=== PATIENT | female | born 1940 | race Caucasian/White ===

== ENCOUNTER 2016-10-31 07:09 | Outpatient (CLI) | payer MEDICARE, OTHER ==
[~2016-10-31] VITALS: Ht 161.3 cm; Wt 121.9 kg
--- NOTE | ~2016-10-31 | CATH ---
Cardiac Diagnostic + PCI Report Demographics Patient Name KARLEE PIERRE Gender Female STEVEN Date of 1940 Age 76 year(s) Patient Number [id number] Date of Study 10/31/2016 Visit Number [id number] Room Number G6399 [place] [id number] Ht 161.29 cm Wt 121.9 kg Referring [facility] Primary Physician Physician Radha MADRID Performing [facility] Secondary Physician Physician Radha MADRID Diagnostic [facility] Assisting Physician Physician Radha MADRID Interventional [facility] Physician Hairspring Staker Physician Radha MADRID Findings and Conclusions Diagnostic Findings and Conclusion 2 vessel CAD Mid LAD AUDIO VISUAL SECRETARY with left to right collaterals and left to left collaterals Proximal 60% RCA lesion Mild pulmonary HTN, mean PA pressure 29 mmHg, PCWP 6 mmHg, LVEDP 11 mmHg. Diagnostic Recommendations FFR of RCA Interventional Findings and Conclusion FFR of RCA was 0.88, lesion is not physiologically significant. No PCI recommended Interventional Recommendations Patient will be discharged later today. Hydration and followup creatinine. Patient has been instructed to not lift anything more than 5 pounds for 1 week. I will plan on seeing the patient back in 3 week(s). Optimize LV systolic function. Aggressive risk factor management. Aggressive medical therapy for coronary artery disease. ASA. Statin. Beta Samir. Angiotensin Receptor Samir will be given . Cardiac diet . Optimization of medical therapy as an outpatient. Procedure Description The patient was brought to the diagnostic cardiac catheterization-EP laboratory in the fasting, non-sedated state. Informed consent was obtained in the written and verbal form after the risks and benefits were explained. The patient had no further questions and agreed to proceed. The planned puncture-incision site(s) were shaved and prepped with ChloraPrep and draped in the usual sterile manner. Conscious sedation, supplemental oxygen, and pain control medications were delivered by a registered nurse under physician guidance. Surface ECG rhythm, blood pressure measurement, and pulse oximetry were monitored throughout the procedure. Venous access. Venous access was gained prior to the procedure starting by inserting an 18 gauge IV catheter to the right brachial vein. A sheath was advanced into the vessel and used for catheter placement. Arterial access. The access site was infiltrated with lidocaine. The vessel was entered with the Seldinger technique. A sheath was advanced into the vessel and used for catheter placement. Right heart catheterization. A Minoa Leobardo catheter was successfully advanced to the right atrium, right ventricle, pulmonary artery, and pulmonary artery wedge position under fluoroscopic guidance. Resting hemodynamics were obtained. Measurements included pressures and venous oxygen saturation samples. The Minoa was removed without difficulty. Left heart catheterization. A catheter was advanced across the aortic valve to the left ventricle under fluoroscopic guidance. Resting hemodynamics were obtained. Selective right coronary angiography. A catheter was advanced into the right coronary vessel ostium under fluoroscopic guidance. Contrast was injected by hand. Images were obtained in multiple projections. Selective left coronary angiography. A catheter was advanced into the left coronary vessel ostium under Fluoroscopic guidance. Contrast was injected by hand. Images were obtained in multiple projections. FFR measurement was performed. The vessel was entered with a guiding catheter. The FFR wire was normalized and then advanced across the lesion. Maximum hyperemia was achieved using adenosine. Arterial and Venous hemostasis was achieved. The patient was transferred to a regular nursing floor via cart accompanied by a nurse. The patient left the laboratory in stable condition. Diagnostic Cath Status: Elective Interventional Cath Status: Elective Procedure Procedure Type Diagnostic procedure:Angiography:, Right and Left Heart Cath, Coronary Angios PCI procedure:Additional Imaging:, FFR/iFR:, Initial Vessel Indications: Cardiomyopathy and Dyspnea with exertion. The procedure was explained in detail to the patient. Risks, complications and alternative treatments were reviewed. Written consent was obtained. Medications Reviewed with Patient prior to Procedure. Angiographic Findings Dominance: Right Cardiac Arteries and Lesion Findings LMCA: Normal (0% Stenosis). LAD: Lesion on Mid LAD: Mid subsection.100% stenosis . Pre procedure MIROSLAVA 0 flow was noted. Chronic total occlusion. Lesion on 1st Diag: Mid subsection.20% stenosis . LCx: Lesion on Mid CX: Mid subsection.33% stenosis . Lesion on Dist CX: Mid subsection.30% stenosis . RCA: Lesion on Prox RCA: Mid subsection.60% stenosis . Pre procedure MIROSLAVA II flow was noted. Culprit lesion. FFR + + + + !FFR !Stage/Medication !Dosage ! + + + + !0.88 !Adenosine (I.V) !140 ! + + + + Devices used - Sports[employer] Pressure Wire. Number of passes: 1. - Runthrough NS .014 x 180. Number of passes: 1. Lesion on Mid RCA: Mid subsection.20% stenosis . Lesion on Dist RCA: Mid subsection.20% stenosis . Lesion on 1st RPL: Mid subsection.10% stenosis . Lesion on R PDA: Mid subsection.10% stenosis . Ramus: Lesion on Ramus: Ostial.20% stenosis . Cardiac Collaterals - Moderatecollateral flow from the R PDA to the Dist LAD. - Moderatecollateral flow from the 2nd Ob Nicki to the Dist LAD. Coronary Tree Procedure Data Procedure Date Date: 10/31/2016Start: 10:09 AMEnd: 11:12 AM Entry Locations - Retrograde Percutaneous access was performed through the Right Radial artery (Primary location). A 6 Fr sheath was inserted. Hemostasis was successfully obtained using Mechanical Compression. Closure Comments: R Band - 14mL's. - Antegrade Percutaneous access was performed through the Right Brachial vein. A 6 Fr sheath was inserted. Hemostasis was successfully obtained using Manual Compression. Closure Comments: 10min of manual pressure held by Adele FORTUNE). Procedure Medications Order and Administration + + + + + !Time !Medication !Dosage !Route ! + + + + + !10/31/2016 10:09 !Versed !1 mg !I.V. ! !AM ! ! ! ! + + + + + !10/31/2016 10:13 !Radial Verapamil !2.5 mg !I.A. ! !AM ! ! ! ! + + + + + !10/31/2016 10:21 !Heparin (ACC_3) !5000 units !I.V. bolus ! !AM ! ! ! ! + + + + + !10/31/2016 10:33 !Angiomax (Bivalirudin) !90 mg !I.V. bolus ! !AM !(ACC_5) ! ! ! + + + + + !10/31/2016 10:45 !Adenosine (IV) !140 mcg/kg/min!I.V. ! !AM ! ! ! ! + + + + + !10/31/2016 10:47 !Adenosine (IV) ! !I.V. ! !AM ! ! ! ! + + + + + !10/31/2016 10:48 !Angiomax (Bivalirudin) ! !I.V. drip ! !AM !(ACC_5) ! ! ! + + + + + !10/31/2016 10:34 !Angiomax (Bivalirudin) !1.75 mg/kg/hr !I.V. drip ! !AM !(ACC_5) ! ! ! + + + + + Devices Used - A6 Fr. Balloon Wedge Catheterwas used for:Right heart cath. - A5 Fr. BS JR 4 Diag. Catheterwas used for:Right coronary angiography. Comments: and LV pressures. - A5 Fr. BS JL 3.5 Diag. Catheterwas used for:Left coronary angiography. - A6 Fr. 3DRC JJ Guide Catheterwas used for:RCA Intervention. Contrast Material - Isovue 03570 ml Fluoroscopy Time: Diagnostic: 8:54 minutes. Total: 8:54 minutes. Fluoroscopy Dose: Diagnostic: 1426 mGy. Total: 1426 mGy. Estimated Blood Loss: 15 ml. Additional [facility] PCI Information PCI Indication:PCI for high risk Non-STEMI or unstable angina. Medical History Performed Procedures and Imaging Results - No [facility] stress or imaging studies were performed. Allergies - Other:(Lisinopril). - Other:([place]). Risk Factors The patient risk factors include:hypertension, insulin-treated diabetes mellitus, last creatinine: 1.2 mg/dl, creatinine clearance: 75.55 ml/min and dyslipidemia. Admission Data Admission Date: 10/31/2016 Admission Time: 07:09 AM Admit Source: Other Insurance Payors: Medicare. Admission Medications + +------+------+ + + + + !Medication !Dosage!Times !Last !Last !Administered !Comments ! ! ! !Per !Delivery !Delivery ! ! ! ! ! !Day !Date !Time ! ! ! + +------+------+ + + + + !Beta ! ! ! ! !Yes ! ! !Samir ! ! ! ! ! ! ! !(any) ! ! ! ! ! ! ! + +------+------+ + + + + !ARB (any) ! ! ! ! !Yes ! ! + +------+------+ + + + + !Statin ! ! ! ! !Yes ! ! !(any) ! ! ! ! ! ! ! + +------+------+ + + + + Clinical Evaluation Leading to Procedure - The patient's CAD presentation was assessed as: Symptom unlikely to be ischemic. - The patient's anginal syndrome during the past two weeks was assessed as: Class II according to the [place] Cardi[employer] Classification System (CCS). Anti-anginal medications were prescribed during the past two weeks. The medication is: Beta Blockers. - The patient has been in a state of heart failure within the past two weeks. - The patient's heart failure status was assessed as NYHA Class III, with CHF symptoms of CAI. - The reason for the patient's labor contract analyst visit is evaluation of cardiomyopathy and/or evaluation of left ventricular systolic dysfunction. VA . Ejection Fraction - Method: Echocardiography. EF%: 30. Hemodynamics Condition: Rest O2 Consumption: Estimated: 200.91Heart Rate: 71 bpm Oxygen Saturation +--------+-----+----+ +----+ + !Location!pCO2 !pO2 !% Saturation !Hgb !O2 Content ! +--------+-----+----+ +----+ + !PA ! ! !67.7 !12.6! ! +--------+-----+----+ +----+ + !RA ! ! !72.8 !12.6! ! +--------+-----+----+ +----+ + !AO ! ! !100 !12.6! ! +--------+-----+----+ +----+ + Pressures (mmHg) +-----+ + !Site !Pressure ! +-----+ + !PA !41 (29) ! +-----+ + !PCW !04/03 (6) ! +-----+ + !RV !36/1 ,4 ! +-----+ + !RA !11/30 (3) ! +-----+ + !LV !123/13 ,11 ! +-----+ + !LV !124/14 ,16 ! +-----+ + Cardiac Output +------+ + + + !Method!CO (l/min) !CI (l/min/m2) !SV (ml) ! +------+ + + + !Rut !3.63 !1.6 !51.14 ! +------+ + + + Shunts Oxygen Values O2 Capacity 171.36 O2 Consumption 200.91 Flows (l/min) Qs 4.31 Qe/Qp 1.19 Qp 3.63 Qp/Qs 0.84 Qe 4.31 Vascular Resistance (dynes x sec x cm-5) + +----+---+----+----+---------+-------+ !CO method !TSVR!SVR!TPVR!PVR !TPVR/TSVR!PVR/SVR! + +----+---+----+----+---------+-------+ !Rut ! ! !7.9 !6.29! ! ! + +----+---+----+----+---------+-------+ !Qp or Qs ! ! !7.9 !6.29! ! ! + +----+---+----+----+---------+-------+ Discharge Data Discharge Date: 10/31/2016 Hospital Status: Outpatient Signatures dtt: RADHA YEN dtd: 10/31/16 1009 Physician Self Edit
[~2016-10-31 07:09] MED LIST: COLACE100 MG PO; COUMADIN **IA2.5 MG PO; COZAAR50 MG PO; CPAP INH; CRESTOR10 MG PO; CYMBALTA60 MG PO; DESYREL50 MG PO; DILTIAZEM 24HR240 MG PO; FERROUS SULFAT325 MG PO; GLUCOTROL XL2.5 M1 PO; JENTADUETO 2.51 EACH PO; K-TAB ER20 MEQ PO; KLONOPIN1 MG PO; LASIX40 MG PO; LEVEMIR FL100 UNIT/1 SUB-Q; LYRICA 75MG CAP75 MG PO; MECLIZINE HCL25 MG PO; NOVOLOG FL100 UNIT/1 SUB-Q; OXYGEN M-15 INH; PRILOSEC20 MG PO; TOPROL XL 5050 MG PO; VITAMIN B-6100 MG PO; ZYRTEC10 MG PO
[2016-10-31 07:57] LABS: BASOPHIL # 0.1 K/uL (0.0-0.2); BASOPHIL % 0.5 %; EOSINOPHIL # 0.3 K/uL (0.0-0.5); EOSINOPHIL % 2.6 %; HEMATOCRIT 40.1 % (33.0-46.0); HEMOGLOBIN 12.6 g/dL (10.0-15.0); IMMATURE GRANULOCYTE % 0.2 %; LYMPHOCYTE # 2.2 K/uL (0.8-4.0); LYMPHOCYTE % 20.9 %; MCH 29.6 pg (27.0-34.0); MCHC 31.4 gm/dL (32.0-36.5); MCV 94.1 fl (83.0-98.0); MONOCYTE # 0.9 K/uL (0.0-1.0); MONOCYTE % 7.9 %; MPV 9.7 fl (9.4-12.4); NEUTROPHIL # (ANC) 7.3 K/uL (1.8-7.8); NEUTROPHIL % 67.9 %; NRBC % 0 /100WBC (0-0.00); PLATELET COUNT 275 K/uL (150-450); RBC 4.26 M/uL (3.50-5.50); RDW-CV 13.2 % (11.9-14.6); WBC 10.7 K/uL (4.0-11.0)
[2016-10-31 08:09] LABS: INR - (THERAPEUTIC) 1.2 (0.9-1.1); PROTIME 13.2 SECONDS (9.6-11.1); PTT 28 SECONDS (25-32)
[2016-10-31 08:16] LABS: ALBUMIN 3.6 gm/dL (3.5-5.0); ANION GAP 11.7 (10.0-19.0); CALCIUM 9.1 mg/dL (8.5-10.5); CREATININE 1.2 mg/dL (0.5-1.1); POTASSIUM 3.7 mMol/L (3.7-5.1); TOTAL BILIRUBIN 0.6 mg/dL (0.0-1.5); TOTAL PROTEIN 7.8 g/dL (6.0-8.4)
== END 2016-10-31 14:46 | disposition disaster alternative care site (69) ==
LOC: GPCU 07:09 → GCAT 07:09
PROVIDERS: Internal Medicine Interventional Cardiology
PROC: 4A033BC Measurement of Arterial Pressure, Coronary, Percutaneous Approach (ICD-10-PCS; principal; 2016-10-31)
PROC: B2111ZZ Fluoroscopy of Multiple Coronary Arteries using Low Osmolar Contrast (ICD-10-PCS; principal; 2016-10-31)
PROC: 4A023N8 Measurement of Cardiac Sampling and Pressure, Bilateral, Percutaneous Approach (ICD-10-PCS; principal; 2016-10-31)
DX: I42.9 Cardiomyopathy, unspecified (principal); I25.10 Atherosclerotic heart disease of native coronary artery without angina pectoris; I25.82 Chronic total occlusion of coronary artery; I11.0 Hypertensive heart disease with heart failure; I50.32 Chronic diastolic (congestive) heart failure; E11.9 Type 2 diabetes mellitus without complications; G47.33 Obstructive sleep apnea (adult) (pediatric); I48.0 Paroxysmal atrial fibrillation; E66.9 Obesity, unspecified; J44.9 Chronic obstructive pulmonary disease, unspecified; E78.5 Hyperlipidemia, unspecified; I27.2 Other secondary pulmonary hypertension; Z95.0 Presence of cardiac pacemaker; Z79.01 Long term (current) use of anticoagulants; Z79.4 Long term (current) use of insulin; Z79.899 Other long term (current) drug therapy; Z99.81 Dependence on supplemental oxygen
CPT/HCPCS: C1769; C1887; C1894; J0153; J0583; J1644; J2001; J2250; J7030; J7060

== ENCOUNTER 2017-04-17 19:41 | Inpatient (IN) | payer MEDICARE, OTHER ==
[~2017-04-17] VITALS: Ht 161.3 cm; Wt 117.4 kg
--- NOTE | ~2017-04-17 | HP ---
PATIENT'S NAME: GABBY DESIR [facility] AGE: 76 Y [address] ROOM: [place] [address] LOCATION: GICU ADMIT DATE: 04/17/2017 History & Physical DISCHARGE DATE: FAMILY PHYSICIAN: PHYSICIAN, UNKNOWN ATTENDING PHYSICIAN: JAVAD FINNEGAN DATE OF SERVICE: CHIEF COMPLAINT: Shortness of breath. HISTORY OF PRESENT ILLNESS: A 76-year-old lady with a past medical history of systolic heart failure with ejection fraction last known was 20% to 25%. She presented to the [place] [facility] with an increasing shortness of breath over the course of past 3 months. Of note, she had a generator exchange couple weeks ago and did get infection which was treated with the antibiotics resulting in some diarrhea which have resolved by now. She was transferred here for further medical care. On my encounter, she is on BiPAP stating that she is feeling better. She stated that over the course of past week, she has been getting progressively short of breath without any sputum production or any fever. She did endorse having PND, orthopnea as well as leg swelling. She denied any chest pressure or any palpitations. She also endorsed that her diuretic medications have been recently reduced by the primary care physician because she was too dry. On further inquiry, she denied any headache, any trouble with the eyes, any trouble swallowing, any chest pain, any palpitations, any abdominal pain. She did endorse having diarrhea in the past which have resolved for now. Did endorse having increased oxygen requirements at home. She does use 2 L of oxygen with the CPAP at night for her obstructive sleep apnea. REVIEW OF SYSTEMS: All other systems reviewed were negative except what is mentioned in the HPI. PAST MEDICAL HISTORY: 1. Heart failure with reduced ejection fraction, status post AICD placement. 2. Type 2 diabetes mellitus. 3. Hyperlipidemia. 4. Hypertension. 5. Atrial fibrillation, on long-term anticoagulation. 6. Obstructive sleep apnea. 7. Anemia of chronic disease. 8. Chronic hypoxic respiratory failure. MEDICATIONS: PATIENT'S NAME: GABBY DESIR [facility] AGE: 76 Y [address] ROOM: [place] [address] LOCATION: GICU ADMIT DATE: 04/17/2017 History & Physical DISCHARGE DATE: FAMILY PHYSICIAN: PHYSICIAN, UNKNOWN ATTENDING PHYSICIAN: JAVAD FINNEGAN Being reconciled right now. ALLERGIES: THE PATIENT IS ALLERGIC TO ELY INHIBITORS. FAMILY HISTORY: Positive for diabetes as well as pulmonary embolism in mother. SOCIAL HISTORY: Lives by herself. No ongoing toxic habits have been reported. PHYSICAL EXAMINATION: VITAL SIGNS: Blood pressure 140/78, 82 regular, respiratory rate of 30, saturating 95% on BiPAP with 50% of oxygen. GENERAL: In moderate acute distress due to shortness of breath and using accessory muscles to breathe. HEENT: Head: Atraumatic, normocephalic. Eyes: Nonicteric. No pallor. Oropharynx: Moist mucous membranes. CARDIOVASCULAR: Regular. S1, S2. No murmurs, gallops, or rubs. LUNGS: Bilateral decreased air entry at the bases and crepitations up to mid lung forman. Equal air entry. ABDOMEN: Soft, nontender, obese. Bowel sounds are present. EXTREMITIES: With +1 extremity edema bilaterally noted. LYMPHATICS: No lymphangitis or lymphadenopathy noted. MUSCULOSKELETAL: No muscle tenderness or joint swelling noted. SKIN: No blemishes or rashes noted. ENDOCRINE: No thyromegaly or myxedema noted. NECK: Positive JVD, but no lymphadenopathy. NEUROLOGIC: Cranial nerves 2 through 12 intact. No motor or sensory deficit noted. DIAGNOSTIC DATA: Chest x-ray done at the outside facility showed extensive vascular congestion with cardiomegaly. We repeated the chest x-ray over here which did show bilateral pulmonary edema with the fluid in the fissure on the right side. Cardiomegaly is evident. Underlying pleural effusions cannot be excluded. Ultrasonography at the bedside was done which failed to reveal any type of pleural effusions. EKG was done, which showed a ventricularly paced rhythm. Lab work showed white count of 14, hemoglobin of 11, platelets 340. These labs were taken after initial furosemide dose was given and these appeared to be concentrated as compared to the previous labs. PATIENT'S NAME: GABBY DESIR [facility] AGE: 76 Y [address] ROOM: [place] [address] LOCATION: [facility] ADMIT DATE: 04/17/2017 History & Physical DISCHARGE DATE: FAMILY PHYSICIAN: PHYSICIAN, UNKNOWN ATTENDING PHYSICIAN: JAVAD FINNEGAN Sodium 144, potassium 4.6, chloride 108, bicarb 27, BUN 25, creatinine 1.2, glucose of 156. UA was negative. Initial 2 sets of troponin was 0.120 and 0.125. INR was 4.8. ABG done at our hospital showed a pH of 7.39/59/97/97% on 5 L of oxygen. ASSESSMENT AND PLAN: 1. Acute on chronic hypoxic as well as hypercarbic respiratory failure. 2. Acute on chronic systolic congestive heart failure. 3. Hypertension. 4. Type 2 diabetes mellitus. 5. Atrial fibrillation, on oral anticoagulation. 6. Obstructive sleep apnea. 7. Acute kidney injury secondary to cardiorenal syndrome. 8. Morbid obesity. 9. Cardiomyopathy not sure if it is secondary to ischemia. We will obtain medical records. PLAN: We are going to admit this lady to the ICU. She is requiring noninvasive ventilation at this point. We will diurese her further here with the Bumex 1 mg. She has already received 40 of Lasix at the outside facility. We will monitor the electrolyte as well as intakes and outputs. If needs to be, the patient will get intubated and this has been discussed with the patient already. We will get ProBNP levels, 1 set of troponins and echocardiography in the morning. We will obtain TSH and HGB A1c as well. She is a patient of Dr. Radha Landon. We will obtain medical records from Dr. Radha Landon office and requested to see the patient in the morning. We will put her on sliding scale insulin for diabetes. Pharmacy to dose Coumadin. She is already therapeutic, so no further DVT prophylaxis. Urine sodium, creatinine and urea. Diabetic diet. Further management will depend on her progress in the hospital. I spent 50 minutes in providing critical care to this patient. MD LOUISE JACOBSEN/prasanna /[id number] D: T: [id number] HISTORY & PHYSICAL
--- NOTE | ~2017-04-17 | ECHO ---
Transthoracic Echocardiography Report (TTE) Demographics Patient Name GABBY DESIR Date of Study 04/18/2017 STEVEN Patient Number [id number] Visit Number [id number] Date of 1940 Room Number G6216 Gender Female Number Age 76 year(s) Referring Daxa Bess CRNA Milk Driver Paul Harvey RDCS, Physician RVT, RDMS, COAL UNLOADER Physician Interpreting Dipesh Garcia MD Ski Base Trimmer Physician Supervising Ordering Daxa Bess CRNA, MD/MLP Physician Nurse Stress Decay Control Operator Conclusions Summary Technically difficult exam. Ischemic cardiomyopathy with severely reduced LV systolic function. The estimated left ventricular ejection fraction is 20-25%. Moderate concentric left ventricular hypertrophy. Diastolic flow assessment reveals a pseudonormal pattern consistent with Grade II diastolic dysfunction . E/e' of 26 is consistent with markedly elevated left ventricular filling pressures. Definity contrast utilized for endocardial wall motion analysis. Mildly dilated right ventricle with low normal systolic function. Right ventricular hypertrophy is present. Severe biatrial enlargement. Mild-moderate mitral regurgitation by color Doppler. Moderate tricuspid regurgitation by color Doppler. There is severe pulmonary hypertension. The pulmonary pressure (RVSP) is 66 mmHg. Left pleural effusion noted. Procedure Type of Study TTE procedure:2D Echocardiogram, M-Mode, Doppler , Color Doppler, Contrast study, Echo with Contrast. Procedure Date Date: 04/18/2017 Start: 07:20 AM Study Location: Inpatient Portable Technical Quality: Poor visualization due to body habitus. Additional Indications:SOB, CAD Appropriate Use Criteria: 9 Patient Status: Timed Contrast Medium: Definity. Amount - 2 ml HR: 100 bpm BP: 149/68 mmHg Allergies - Other:(Lisinopril). - Other:([place]). M-Mode/2D Measurements LV Diastolic Dimension: 5.14 cm LV Systolic Dimension: 3.93 cm LV Septum Diastolic: 1.38 cm LV PW Diastolic: 1.38 cm AO Root Dimension: 3.3 cm Cardiac Output: 4.27 l/min AV Cusp Separation: 1.9 cm RV Diastolic Dimension: 4.44 cm LA volume: 131 ml LVOT: 2 cm RV Base: 3.9 cm LVOT VTI: 13.6 cm RV Mid: 3.3 cm LV Stroke volume: 42.7 ml TAPSE: 2.2 cm TDI-S': 13 cm/s Doppler Measurements AV Peak Velocity: 2.27 m/s MV Peak E-Wave: 1.5 m/s AV Peak Gradient: 20.61 mmHg MV Peak A-Wave: 1.01 m/s AV Mean Gradient: 10 mmHg MV E/A Ratio: 1.49 LVOT Peak Velocity: 0.77 m/s MV P1/2t: 83 msec TR Gradient:50.98 mmHg PV Peak Velocity: 0.81 m/s Estimated RAP:15 mmHg PV Peak Gradient: 2.65 mmHg Estimated RVSP: 66 mmHg Estimated PASP: 65.98 mmHg E' Septal Velocity: 0.21 m/s A' Septal Velocity: 0.1 m/s E' Lateral Velocity: 0.06 m/s A' Lateral Velocity: 0.1 m/s Findings Left Ventricle The left ventricle is normal in size . Moderate concentric left ventricular hypertrophy. Severely reduced systolic function with numerous wall motion abnormalities. Diastolic assessment reveals Grade II pseudonormal diastolic function . E/e' of 26 is consistent with markedly elevated left ventricular filling pressures. Definity contrast utilized for endocardial wall motion analysis. Right Ventricle Device lead noted in the right ventricle. Mildly dilated right ventricle with low normal systolic function. Right ventricular hypertrophy is present. Left Atrium The left atrium is severely dilated by LA volume index measurement. Right Atrium Device lead seen in the right atrium. The right atrium is moderate to severely dilated. Dilated IVC with poor inspiratory collapse consistent with elevated RA pressure. Mitral Valve Moderate mitral annular calcification. The mean gradient is 4 mmHg. Mild-moderate mitral regurgitation by color Doppler. Aortic Valve Focal calcification of the right coronary cusp. The non coronary cusp moves well. There is trivial aortic regurgitation by color Doppler. Mild based on gradients, could be an underestimate given reduced LV systolic function and gradients could be an underestimate, clinical correlation recommended. Tricuspid Valve Moderate tricuspid regurgitation by color Doppler. There is severe pulmonary hypertension. The pulmonary pressure (RVSP) is 66 mmHg. Pulmonic Valve The pulmonic valve is not well visualized. Pericardial Effusion Trivial posterior pericardial effusion. There is no echocardiographic evidence of cardiac tamponade. Miscellaneous Suboptimal subcostal window to evaluate the interatrial septum. Pleural Effusion Left pleural effusion noted. Signature Electronically signed by Dipesh Garcia MD([facility] physician) on 04/18/2017 02:34 PM dtt: CASSI YEN dtd: 04/18/17 0720 Physician Self Edit
--- NOTE | ~2017-04-17 | CON ---
PATIENT'S NAME: GABBY DEL RIO [facility] AGE: 76 Y [address] ROOM: [id number] [place] [id number] LOCATION: GICU ADMIT DATE: 04/17/2017 Consultation DISCHARGE DATE: FAMILY PHYSICIAN: Wes Bello MD ATTENDING PHYSICIAN: JAVAD FINNEGAN DATE OF CONSULTATION: 04/18/2017 REFERRING PHYSICIAN: CASSI YEN MD CHIEF COMPLAINT: Shortness of breath. REQUESTING PROVIDER: Dr. Lomax. HISTORY OF PRESENTING ILLNESS: The patient is a very pleasant 76-year-old morbidly obese female with extensive cardiac history. She has history of ischemic cardiomyopathy with LVEF of about 20% on recent echocardiogram. She has 2-vessel coronary artery disease. 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 She also had moderate disease in her RCA of about 60% and FFR was not physiologically significant, so she has been on medical therapy. 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 She has atrial fibrillation and is on warfarin therapy. She also has COPD and is on oxygen on 3 L at home. She has obstructive sleep apnea and is on CPAP at night. She recently had worsening renal function and her GFR was about 10-15. Her creatinine bumped up to 2.4, so all her nephrotoxic agents including diuretics were all held, and she did have significant improvement in her creatinine without worsening symptoms with a proBNP of 1037 when we last saw her in clinic. She stopped her Aldactone, losartan, and Lasix as well as the potassium. We did encourage her to decrease her sodium intake as well as education on low-sodium diet and use Lasix 40 mg p.r.n. for weight gain more than 3 pounds; however, in the interim, she reports she has been feeling more short of breath and gained 10 pounds and failed to take her Lasix as instructed. Her breathing was quite significant. She had a lot of shortness of breath at rest, and she went to the emergency room in [place]. She was requiring about 6 L of oxygen. Her proBNP was significantly elevated, and due to her respiratory distress as well as increased requirement for oxygen, they called me to see if patient can be transferred here for further higher level of care. She does have PND and orthopnea as well as significant lower extremity edema with about 10-pound weight gain. When she came in, she was in a lot of distress with CO2 retention and she was on BiPAP overnight along with PATIENT'S NAME: GABBY DEL RIO [facility] AGE: 76 Y [address] ROOM: [place] [address] LOCATION: [facility] ADMIT DATE: 04/17/2017 Consultation DISCHARGE DATE: FAMILY PHYSICIAN: Wes Bello MD ATTENDING PHYSICIAN: JAVAD FINNEGAN IV, and she responded beautifully with significant improvement in her symptoms and she is back on 3 L of oxygen this morning, much more comfortable and not struggling to breathe. She was compliant with the BiPAP at night and reports she is much better today. She really does not have any chest discomfort, tightness, pressure, or heaviness. No other palpitations or acute symptoms overnight. No fever, chills, cough, or sputum production. She did have some diarrhea few days ago and that has resolved. She does not have any stroke-like symptoms. No changes in her speech, sensation, or strength. REVIEW OF SYSTEMS: All other review of systems were discussed with patient. Pertinent positives and negatives mentioned in her history of presenting illness. PAST MEDICAL HISTORY: 1. Ischemic cardiomyopathy, status post ICD placement. 2. Type 2 diabetes mellitus. 3. Hyperlipidemia. 4. Hypertension. 5. Atrial fibrillation, on Coumadin. 6. Obstructive sleep apnea, on CPAP. 7. Anemia of chronic disease. 8. CKD stage 3. 9. Chronic hypoxic respiratory failure with COPD, on 3 L of oxygen. FAMILY HISTORY: Positive for diabetes. No premature coronary artery disease or sudden cardiac . SOCIAL HISTORY: The patient lives alone. She does not have any alcohol or illicit drug abuse. No tobacco abuse. PAST SURGICAL HISTORY: Knee replacement, foot and ankle surgery, cholecystectomy, and history of a fistula repair. ALLERGIES: ELY INHIBITOR AND CITRUS FRUITS. HOME MEDICATIONS: She is on: 1. Meclizine 25 t.i.d. 2. Cetirizine 10 daily. 3. Trazodone 50 at bedtime. 4. Colace 100 b.i.d. PATIENT'S NAME: JAVI DEL RIOLIE [facility] AGE: 76 Y [address] ROOM: [id number] [place], [place] [address] LOCATION: [facility] ADMIT DATE: 04/17/2017 Consultation DISCHARGE DATE: FAMILY PHYSICIAN: Wes Bello MD ATTENDING PHYSICIAN: JAVAD FINNEGAN 5. Duloxetine 60 daily. 6. Lasix 40 mg in the morning and 2 tablets at noon, however, she has been holding this. 7. Feosol 325 mg daily. 8. Holding losartan 50 mg daily. 9. Coumadin 2.5 mg daily. 10. Potassium 40 mEq daily. She has been holding that. 11. Omeprazole 20 mg daily. 12. Clonazepam 2 mg daily at bedtime. 13. Glipizide 2.5 mg daily. 14. Jentadueto 2.12/999 mg p.o. b.i.d. 15. Rosuvastatin 10 mg daily. 16. Aldactone 25 mg daily. She is holding this medication. 17. Lyrica 25 mg p.o. b.i.d. 18. NovoLog sliding scale insulin. 19. Levemir 30 at bedtime. 20. Vitamin B6 at 100 mg daily. 21. Metoprolol succinate 75 mg daily. 22. Clindamycin 150 q.6 hours. PHYSICAL EXAMINATION: GENERAL: The patient is a morbidly obese female. She is resting comfortably in bed. She is not in any apparent distress. She is alert and oriented to time, place, and person. She is cooperative and answers all questions appropriately. VITAL SIGNS: 130/80; pulse 100, paced ventricular beats; respirations 20; and O2 saturation 96% on 3 L of oxygen. HEENT: Head: Atraumatic, normocephalic. Eyes: Sclerae white. No xanthelasmas. Oropharynx: Mucous membranes moist. HEART: S1, S2. Tachycardic. Soft systolic murmur of 2/6 in the apex. LUNGS: Decreased breath sounds in the bases and crackles in the lung bases bilaterally. Poor air exchange, prolonged phase of expiration. ABDOMEN: Soft. Bowel sounds are positive. Obese. EXTREMITIES: 1+ bilateral lower extremity edema. MUSCULOSKELETAL: No muscle tenderness or joint swelling. SKIN: Warm and dry. NECK: Positive for JVD. NEUROLOGIC: Grossly intact. Able to answer all questions and move extremities against gravity. DATA: Chest x-ray with vascular congestion and cardiomegaly with bilateral pleural effusion. EKG: Electronic ventricular paced beats. PATIENT'S NAME: GABBY DEL RIO [facility] AGE: 76 Y [address] ROOM: [id number] [place], [place] [address] LOCATION: GICU ADMIT DATE: 04/17/2017 Consultation DISCHARGE DATE: FAMILY PHYSICIAN: Wes Bello MD ATTENDING PHYSICIAN: JAVAD FINNEGAN Blood work, laboratories: Her sodium is 143, potassium 3.9, chloride 101, CO2 of 33, glucose 142, BUN 26, creatinine 1.3, albumin 3.4, globulin 4.7, alkaline phosphatase 94, AST 50, ALT 49, estimated GFR of 44, cholesterol 155, triglycerides 259, and LDL was 60 and the cholesterol panel was from October 2016. Troponin this admission at 0.159. It is a flat trend, the initial was 0.18 x2 and then 0.159. ProBNP was 14,444. Her A1c was 6.4, and her GFR was 44. WBC 12.3, hemoglobin and hematocrit of 10.8 and 34.2, and platelets are 307. Echocardiogram shows LVEF of about 20% in 2017. Catheterization: Mid LAD ADMISSIONS MANAGER RN with left and right to left collaterals. Proximal RCA 60% stenosis. No significant pulmonary hypertension on catheterization that was done in October 2016. IMPRESSION: 1. Acute on chronic combined systolic and diastolic congestive heart failure with [place] [employer] IV symptoms and volume overload. 2. Ischemic cardiomyopathy without any anginal symptoms. 3. Status post biventricular ICD in January 2017. 4. Chronic kidney disease stage 3. Her previous creatinine was 2.4 and today it is 1.3. 5. Atrial fibrillation, on Coumadin therapy. 6. Diabetes mellitus, on oral insulin. 7. Hyperlipidemia, on statin therapy. 8. Chronic obstructive pulmonary disease, on 3 L of oxygen at home. 9. Obstructive sleep apnea, on CPAP. 10. Morbid obesity. PLAN: At this time, the patient has responded beautifully to the Lasix and she is about 4.5 L negative. We will start Bumex 2 mg p.o. daily. Restart her Aldactone and losartan and monitor her renal function closely as well as strict I's and O's. Hopefully, she will be able to maintain a good renal function on Bumex 2 mg as well as Aldactone and losartan. If she worsens her renal function, may need to stop Aldactone and we will continue ARB. Continue guideline-directed medical therapy for CAD with Toprol-XL as well as statin and aspirin. We will continue to follow the patient along with you. Thank you very much for allowing us to participate in the care of Ms. Gabby Del Rio. PATIENT'S NAME: GABBY DEL RIO [facility] AGE: 76 Y [address] ROOM: [place] [address] LOCATION: GICU ADMIT DATE: 04/17/2017 Consultation DISCHARGE DATE: FAMILY PHYSICIAN: Wes Bello MD ATTENDING PHYSICIAN: JAVAD FINNEGAN CASSI YEN MD AT/modl /[id number] d: 04/18/17 1538 t: 04/19/17 09, CONSULTATION REPORT
--- NOTE | ~2017-04-17 | DS ---
PATIENT'S NAME: GABBY DESIR AGE: 76 Y [address] ROOM: [id number] [place] [address] LOCATION: GPCU ADMIT DATE: 04/17/2017 Discharge Summary DISCHARGE DATE: 04/22/2017 FAMILY PHYSICIAN: Wes Bello MD ATTENDING PHYSICIAN: Shahriar Mittal FINAL DIAGNOSES: 1. Mrrem-vm-znzocnz hypoxic respiratory failure. 2. Pfqbf-ib-ukxatyr systolic/diastolic congestive heart failure. 3. Obstructive sleep apnea. 4. Chronic obstructive pulmonary disease. 5. Diabetes mellitus type 2, insulin using. 6. Essential hypertension. 7. Chronic atrial fibrillation. 8. Obesity. 9. Anemia of chronic disease. REASON FOR ADMISSION: In short, the patient was transferred after presenting to the [facility] with increasing shortness of breath over the last month. She on arrival there, found to be in an acute hypoxic respiratory failure and was placed on a BiPAP mask. She was transferred here for higher level of care. LABORATORY DATA: On admission, pH 7.39, pCO2 59, PO2 97%, was on 5 L. Sodium on admission was 141, discharge 138; potassium on admission was 4, discharge 4.5. BUN on admission was 26, got as high as 49, most prior to discharge is 47. Creatinine on admission 1.2, got as high as 1.6, at discharge 1.4. AST on admission was 50, ALT 49, alkaline phosphatase 94. Magnesium, the day prior to discharge was 2. On admission, troponin was 0.184. It did trend downward. ProBNP on the was 14,444, hemoglobin A1c 6.4, TSH 1.65. White blood cell count on admission was 12.3 with a hemoglobin at 10.8, hematocrit 34.2, platelet count 307 with a PTT of 49, ProTime 34.4, INR 3.24. Hemoglobin remained stable, was 10.2 at discharge. INR prior to discharge was 2.44. D- dimer on admission was 0.82. Stool on admission was negative for C. diff. RADIOLOGY REPORTS: Chest x-ray showed cardiac enlargement, had infrahilar and bibasilar opacity which was felt to be pulmonary edema. Echocardiogram read by Dr. Radha Landon, showed that her ejection fraction was 20% to 25%. She had grade 2 diastolic dysfunction as well, moderate tricuspid regurgitation, and severe pulmonary hypertension with a pressure of 66 mmHg. HOSPITAL COURSE: The patient was admitted and placed in ICU. She was given IV Bumex on arrival to the floor. She was switched over from BiPAP to high-flow. Her kidney function and electrolytes were monitored closely. She was put on sliding scale insulin and her blood sugars were followed. We did continue her PATIENT'S NAME: GABBY DESIR AGE: 76 Y [address] ROOM: [id number] [place], [place] [address] LOCATION: GPCU ADMIT DATE: 04/17/2017 Discharge Summary DISCHARGE DATE: 04/22/2017 FAMILY PHYSICIAN: Wes Bello MD ATTENDING PHYSICIAN: Shahriar Mittal Coumadin dosing. Cardiology was asked to see her. They did place her on a Bumex and Cozaar. We did fluid restrict her as well. PT and OT did work with her and we did try to improve her functional status. She did diurese nicely and it was felt that she could be moved out of the intensive care unit where she was initially admitted. She did continue to diurese quite nicely. Her kidney function did rise but trended; it did start to come back down. Her device was interrogated and it was felt to be functioning normally. She was put on a Lasix drip over the weekend with good output. She did have good output and her weights were trending down. The morning of the , it was felt that she was stable for discharge. She was placed on an oral dose of Lasix and her other doses were adjusted. A bed was available at the [facility] and she was transferred. DISCHARGE INSTRUCTIONS: She should have a cardiac prudent ADA diet. She is weightbearing as tolerated, PT, OT. She should have Accu-Cheks before meals and at bedtime. ProTime on April [address] to [address] Bello. Her weight in discharge was 117.4 kg. MEDICATIONS: 1. Klonopin 2 mg at bedtime. 2. Colace 100 mg twice daily. 3. Cymbalta 60 mg at bedtime. 4. Ferrous sulfate 325 mg twice daily. 5. NovoLog 6 units 3 times daily with meals. 6. Levemir 32 units at bedtime. 7. Imdur 30 mg at bedtime. 8. Zyrtec 10 mg daily. 9. Cozaar 25 mg at bedtime. 10. Prilosec 20 mg daily. 11. Potassium 40 mEq daily. 12. Lyrica 75 mg twice daily. 13. Vitamin B6 100 mg daily. 14. Crestor 10 mg daily. 15. Desyrel 50 mg at bedtime. 16. Coumadin 5 mg 2 days a week, Saturday and Saturday, and then Coumadin 2.5 mg on Saturday, Saturday, Saturday, , and Saturday. 17. Proventil 2 puffs 4 times daily as needed. 18. Dulera 2 puffs twice daily. 19. [place] 7.5/325 one pill twice daily as needed for pain. 20. Glucagon 1 mg subcu for hypoglycemia. 21. Glucose 16 g p.o. for hypoglycemia. 22. Proventil 2 puffs every 4 hours as needed. 23. CPAP. 24. Toprol-XL 25 mg twice daily. 25. Lasix 40 mg daily. PATIENT'S NAME: GABBY DESIR AGE: 76 Y [address] ROOM: [place] [address] [facility] ADMIT DATE: 04/17/2017 Discharge Summary DISCHARGE DATE: 04/22/2017 FAMILY PHYSICIAN: Wes Bello MD ATTENDING PHYSICIAN: Shahriar Mittal OVERALL PROGNOSIS AT DISCHARGE: Good. I did discuss this with both Dr. Bello, her PCP, and with Dr. Radha Landon, her primary sheet tailer. ELVA HALL MD LAW/modl /[id number] d: 04/23/17 0650 t: 04/26/17 194, DISCHARGE SUMMARY
[2017-04-17 19:55] LABS: BICARBONATE 35.7 mmol/L (18.0-23.0); PCO2 59 mmHg (35-45); PO2 97 mmHg (80-90)
[2017-04-17 20:20] LABS: BASOPHIL % 0.2 %; EOSINOPHIL % 0.1 %; HEMATOCRIT 34.2 % (33.0-46.0); HEMOGLOBIN 10.8 g/dL (10.0-15.0); IMMATURE GRANULOCYTE # 0.1 K/uL (0.0-0.3); IMMATURE GRANULOCYTE % 0.4 %; LYMPHOCYTE # 0.8 K/uL (0.8-4.0); LYMPHOCYTE % 6.1 %; MCH 29.4 pg (27.0-34.0); MCHC 31.6 gm/dL (32.0-36.5); MCV 93.2 fl (83.0-98.0); MONOCYTE # 0.7 K/uL (0.0-1.0); MONOCYTE % 5.5 %; MPV 9.5 fl (9.4-12.4); NEUTROPHIL # (ANC) 10.8 K/uL (1.8-7.8); NEUTROPHIL % 87.7 %; NRBC % 0 /100WBC (0-0.00); PLATELET COUNT 307 K/uL (150-450); RBC 3.67 M/uL (3.50-5.50); RDW-CV 14.6 % (11.9-14.6); WBC 12.3 K/uL (4.0-11.0)
[2017-04-17 20:29] LABS: INR - (THERAPEUTIC) 3.24 (0.92-1.07); PROTIME 34.4 SECONDS (9.8-11.4); PTT 49 SECONDS (25-32)
[2017-04-17 20:33] LABS: ALBUMIN 3.4 gm/dL (3.5-5.0); CALCIUM 9.3 mg/dL (8.5-10.5); CREATININE 1.2 mg/dL (0.5-1.1); TOTAL PROTEIN 8.1 g/dL (6.0-8.4)
[2017-04-17] MEDS ORDERED: ALDACTONE25 MG PO (21:53)
[2017-04-17] MEDS ORDERED: CARDIZEM CD (T240 MG PO (21:59)
[2017-04-17] MEDS ORDERED: IMDUR30 MG PO (22:02)
[2017-04-18 02:18] LABS: INR - (THERAPEUTIC) 2.98 (0.92-1.07); PROTIME 31.6 SECONDS (9.8-11.4)
--- NOTE | 2017-04-18 04:28 | NUR ---
Patient arrived to floor at 2113 from ER. Patient was to be a direct admit from [facility] but stopped in ER per Dr. Mittal. Past medical history of COPD, CHF, HTN, Afib, diabetes, and anemia. Patient presented to [facility] with SOB, increased RR, and diarrhea. Upon arrival to the floor patient was placed on Bipap. RR 20s-30s with O2 sats 95-100%. Patient is alert and oriented x3. Paced rhythm. Denies pain. Martinez and PIV to L) wrist present on admission. 1mg bumex given after arrival, lasix and bumex were also given in [facility].
--- NOTE | 2017-04-18 04:36 | NUR ---
Significant Event: Patient arrived to floor at 2113. A/O x3. Patient on bipap with 35% Fio2. Lung sounds diminished throughout. RR 20s-30s. O2 sats 95-100%. Afebrile. Paced. SBP 130s-150s. Martinez intact with 4255 out. Bowel sounds hypoactive. Patient reported diarrhea earlier in the day before admission, but has had no BM since arrival. Diabetic diet. Denies pain. Follow up: Echo in am, continue to monitor respiratory status
[2017-04-18 06:04] LABS: ANION GAP 12.9 (10.0-19.0); CALCIUM 9.5 mg/dL (8.5-10.5); CREATININE 1.3 mg/dL (0.5-1.1); POTASSIUM 3.9 mMol/L (3.7-5.1)
[2017-04-18] MEDS ORDERED: LASIX40 MG PO ×2 (10:06)
[2017-04-18] MEDS ORDERED: NORCO 7.5-3251 EACH PO (10:18)
--- NOTE | 2017-04-18 11:43 | NUR ---
Introduced self and role of care managment to patient and family. She lives in [place] by herself. She states that she is able to do some of her own cooking. She goes to outpatient physical therapy three times a week and cardiac rehab twice weekly. She states that she needs more asssitance with bathing so she has been showering at therapy on Tuesdays and . She has a son that lives close by and also a sister. We did discuss her discharge options. She would like to be able to go home. I did explain that she had the option of home and continuing outpt therapies. I also gave her the option of home with [facility] with RN,PT,OT, and bath aide. She states that she has had home health thru [place] before for they let her go when she did'nt stay [facility] anymore. I did explain that she would need to be home bound meaning that leaving the home would be taxing. I also gave her the option of a swingbed stay. Patient and family all verbalized understanding and stated they would think about all the options I have given them. They all deny any needs at this time. Will continue to follow.
--- NOTE | 2017-04-18 16:36 | NUR ---
Significant Event: AAOx3, chronic N/T to feet. Pupils 3mm brisk. Equal moderate strength throughout. Moves spontaneously and to command. SBP 90-140's, HR 70-100's, occasionally paced, 2+ edema to lower extremities. L.S. clear and diminished in upper lobes, diminished in lower lobes on 3L via [place]. B.S. active, one BM today while showering, PT reported. Martinez catheter intact, 2500 out this shift. PIV L) hand SL'd. ADA diet, accuchecks AC/HS, 1500mL fluid restriction, low sodium, low fat diet. Up 2PA walker/GB. Follow up: Continue to monitor
--- NOTE | 2017-04-19 04:25 | NUR ---
Significant Event: Patient is alert and oriented x 3. Denies pain. Has diabetic neuropathy-chronic numbness/tingling to bilateral feet. Left hand cramps up. Moves spontaneously and follows commands. PERRLA. Equal strength. C/O feeling restless on 3rd assessment. On 2-3L NC. Home CPAP at night. Lungs clear and diminished in the bases. Has a pacemaker. VSS. Afebrile. Bowel sounds active. Scant BM and moderate-sized BM. ADA diet, low sodium, cardiac diet. No N/V this shift. Good appetite. Family at bedside. No Family at bedside. Generalize edema/weend. 2+ pulses. PIV to left wrist SL no complications.
--- NOTE | 2017-04-19 04:47 | NUR ---
Significant Event: Patient is alert and oriented x 3. Denies pain. Has diabetic neuropathy-chronic numbness/tingling to bilateral feet. Left hand cramps up. Moves spontaneously and follows commands. PERRLA. Equal strength. C/O feeling restless on 3rd assessment. On 2-3L NC. Home CPAP at night with oxygen bled in. Lungs clear and diminished in the bases. Has a pacemaker. VSS. Afebrile. Edematous. Calf SCDs. Bowel sounds active. Scant BM and moderate-sized BM. ADA diet, low sodium, cardiac diet. No N/V this shift. Good appetite. Bruising to abdomen and skin tear to right arm that is dressing and intact. Family at bedside. 2+ pulses. PIV to left wrist SL no complications. Follow up: monitor oxygenation, intake/output, ACHS acchecks, 1500 ml fluid restriction
[2017-04-19 05:18] LABS: BASOPHIL # 0.1 K/uL (0.0-0.2); BASOPHIL % 0.6 %; EOSINOPHIL # 0.3 K/uL (0.0-0.5); EOSINOPHIL % 2.8 %; HEMATOCRIT 32.3 % (33.0-46.0); HEMOGLOBIN 10.4 g/dL (10.0-15.0); IMMATURE GRANULOCYTE % 0.3 %; LYMPHOCYTE # 1.9 K/uL (0.8-4.0); MCH 29.6 pg (27.0-34.0); MCHC 32.2 gm/dL (32.0-36.5); MONOCYTE # 0.9 K/uL (0.0-1.0); MONOCYTE % 8.9 %; MPV 9.2 fl (9.4-12.4); NEUTROPHIL # (ANC) 6.5 K/uL (1.8-7.8); NEUTROPHIL % 67.4 %; NRBC % 0 /100WBC (0-0.00); PLATELET COUNT 280 K/uL (150-450); RBC 3.51 M/uL (3.50-5.50); RDW-CV 14.2 % (11.9-14.6); WBC 9.6 K/uL (4.0-11.0)
[2017-04-19 05:26] LABS: INR - (THERAPEUTIC) 2.97 (0.92-1.07); PROTIME 31.5 SECONDS (9.8-11.4)
[2017-04-19 05:32] LABS: ALBUMIN 2.9 gm/dL (3.5-5.0); ANION GAP 9.2 (10.0-19.0); CALCIUM 8.9 mg/dL (8.5-10.5); CREATININE 1.4 mg/dL (0.5-1.1); PHOSPHORUS 3.8 mg/dL (2.5-4.9); POTASSIUM 3.2 mMol/L (3.7-5.1)
--- NOTE | 2017-04-19 11:44 | NUR ---
Significant Event: Patient on N/C 3L. D/C bahena at 10:30. Lung sounds are clear and dim, bowel sounds are active.VS are all stable. Follow up: consulted care management for swing bed options.
--- NOTE | 2017-04-19 15:00 | NUR ---
Introduced self and role of care management to patient, a sister and nephew. patient lives alone in [place]. Talked to her about [facility] and that physician thought she should consider it. Told her I also talked with therapist and their recommendation is [facility] also. She says she was thinking about [facility] and if [place] will accept her she will go there. Told her don't anticipate she will be ready until early next week. She asks me to call her son Augustin. Called and updated Augustin and he is glad she has agreed to SB. Left [facility] for Maria Esther at [place] [facility]. Will follow.
--- NOTE | 2017-04-19 18:26 | NUR ---
Significant Event: A/OX3, VSS ON 3L PER NC, WEARS CPAP @ NIGHT. NO PAIN. HR'S THIS AFTERNOON UP TO 130'S SUSTAINED THERE FOR HOURS, CALLED DR. ROBERTS, PACER REP CAME TO CHECK OUT ICD, GAVE 25mg OF LOPRESSOR, HR STILL 120'S. UP 1 ASSIST WITH WALKER/GB. CHEMA D/C'D TODAY, PT. HAS VOIDED 400mL SINCE OUT. FAMILY HERE. POSSIBLE D/C TO HOME IN AM, OR TO SWB IN [place] ON SATURDAY. ORTHO'S THIS AFTERNOON WERE NEGATIVE. Follow up: CONTINUE WITH POC.
--- NOTE | 2017-04-20 03:55 | NUR ---
Significant Event: Patient alert and oriented. UP with 1 assist and walker. [place] given at bedtime for complaints of back pain with relief noted. Heart rates from 120s to now 60-70s. 2-3L oxygen during the day, 3L an CPAP at night. Pleasant and cooperative with cares. Follow up: continue to monitor
[2017-04-20 05:15] LABS: PROTIME 25.1 SECONDS (9.8-11.4)
[2017-04-20 05:22] LABS: INR - (THERAPEUTIC) 2.37 (0.92-1.07)
[2017-04-20 05:23] LABS: ANION GAP 8.9 (10.0-19.0); CALCIUM 8.4 mg/dL (8.5-10.5); CREATININE 1.6 mg/dL (0.5-1.1); POTASSIUM 3.9 mMol/L (3.7-5.1)
--- NOTE | 2017-04-20 15:40 | NUR ---
Significant Event: pt up to hong and to chair/bathroom 1 asst/walker. Lasix gtt started this afternoon, po had been given already this am. Pt has good UOP. 02 3liters. Pt has 2 larger looser bms, softener held. Pt has many visitors here. K 3.9 pt is getting 40meq bid. Follow up:
[2017-04-21 04:59] LABS: BASOPHIL # 0.1 K/uL (0.0-0.2); BASOPHIL % 0.6 %; EOSINOPHIL # 0.3 K/uL (0.0-0.5); HEMATOCRIT 31.2 % (33.0-46.0); HEMOGLOBIN 9.9 g/dL (10.0-15.0); IMMATURE GRANULOCYTE % 0.2 %; LYMPHOCYTE # 1.9 K/uL (0.8-4.0); LYMPHOCYTE % 22.9 %; MCH 29.6 pg (27.0-34.0); MCHC 31.7 gm/dL (32.0-36.5); MCV 93.1 fl (83.0-98.0); MONOCYTE # 0.7 K/uL (0.0-1.0); MONOCYTE % 8.1 %; MPV 9.1 fl (9.4-12.4); NEUTROPHIL # (ANC) 5.4 K/uL (1.8-7.8); NEUTROPHIL % 64.2 %; NRBC % 0 /100WBC (0-0.00); PLATELET COUNT 277 K/uL (150-450); RBC 3.35 M/uL (3.50-5.50); RDW-CV 14.2 % (11.9-14.6); WBC 8.4 K/uL (4.0-11.0)
[2017-04-21 05:10] LABS: INR - (THERAPEUTIC) 2.5 (0.92-1.07); PROTIME 26.5 SECONDS (9.8-11.4)
[2017-04-21 05:14] LABS: ALBUMIN 2.8 gm/dL (3.5-5.0); CALCIUM 8.6 mg/dL (8.5-10.5); CREATININE 1.5 mg/dL (0.5-1.1); PHOSPHORUS 4.9 mg/dL (2.5-4.9)
--- NOTE | 2017-04-21 05:40 | NUR ---
Significant Event: PATIENT IS ALERT AND ORIENTED THOUGHOUT SHIFT. UPX1 WITH WALKER TO THE BATHROOM. COMPLAINS OF GAS. HAS SEVERAL XSM BM'S. UOP INCREASED TO 1400 WITH LASIX DRIP. THIS DRIP IS D/C'D. IV IS SL. ACCUCHECKS ACHS. 1500 ML/ FR. ORTHOSTATICS DONE. NORCO ADMINISTERED AT HS. NO COMPLAINTS SINCE. SKIN TEAR TO R.FA, DRESSING CHANGED. Follow up:
--- NOTE | 2017-04-21 16:08 | NUR ---
Significant Event: pt up ok in room one asst with walker. 02 weaned 1liter, but pt states is on 3liters at home. INR 2.5 today, 2.5mg given of coumadin. Pt aristeo held this am for sbp 98. Good uop. Pt family here with her today. Pt in chair most day. Follow up:
--- NOTE | 2017-04-22 03:14 | NUR ---
04/21/17 2320 LASIX DRIP PLACED ON HOLD DUE TO HYPOTENSION. WILL CONTINUE TO MONITOR BP AND WILL RESTART IF BP IMPROVES.
--- NOTE | 2017-04-22 05:27 | NUR ---
Significant Event: PATIENT IS ALERT AND ORIENTED THROUGHOUT SHIFT. UP X 1 ASSIST WITH WALKER AND GAIT BELT. LASIX GTT ORDERED. WAS HELD UNTIL 0430 DUE TO HYPOTENSION. DRIP STARTED AT 5/HR AT 0430. PATIENT SLEPT VERY WELL. WOKE UP AT 0520 WITH AND INCONTINENT LOOSE/LIQUID STOOL. NORCO ADMINISTRED AT HS PER PATIENT REQUEST. ON 3 L O2. PATIENT WEARS CPAP AT HS. Follow up: POSSIBLE [place] SWING BED TODAY?
--- NOTE | 2017-04-22 05:32 | NUR ---
04/21/17 2320 LASIX DRIP HELD DUE TO LOW BP. SEE CHART FOR LIST OF BP'S THROUGHOT SHIFT. WILL MONITOR BP AND INITIATE DRIP AGAIN IF BP INCREASES.
[2017-04-22 10:24] LABS: BASOPHIL # 0.1 K/uL (0.0-0.2); BASOPHIL % 0.6 %; EOSINOPHIL # 0.4 K/uL (0.0-0.5); EOSINOPHIL % 4.1 %; HEMATOCRIT 32.9 % (33.0-46.0); HEMOGLOBIN 10.2 g/dL (10.0-15.0); IMMATURE GRANULOCYTE % 0.2 %; LYMPHOCYTE # 1.4 K/uL (0.8-4.0); LYMPHOCYTE % 15.1 %; MCH 29.3 pg (27.0-34.0); MCV 94.5 fl (83.0-98.0); MONOCYTE # 0.6 K/uL (0.0-1.0); MONOCYTE % 6.8 %; MPV 9.5 fl (9.4-12.4); NEUTROPHIL # (ANC) 6.5 K/uL (1.8-7.8); NEUTROPHIL % 73.2 %; NRBC % 0 /100WBC (0-0.00); PLATELET COUNT 294 K/uL (150-450); RBC 3.48 M/uL (3.50-5.50); RDW-CV 14.1 % (11.9-14.6); WBC 8.9 K/uL (4.0-11.0)
[2017-04-22 10:29] LABS: INR - (THERAPEUTIC) 2.44 (0.92-1.07); PROTIME 25.8 SECONDS (9.8-11.4)
[2017-04-22 10:38] LABS: ANION GAP 11.5 (10.0-19.0); CALCIUM 8.7 mg/dL (8.5-10.5); CREATININE 1.4 mg/dL (0.5-1.1); PHOSPHORUS 3.7 mg/dL (2.5-4.9); POTASSIUM 4.5 mMol/L (3.7-5.1)
--- NOTE | 2017-04-22 13:24 | NUR ---
Significant Event: A/O X3. UP WITH 1 ASSIST, GB AND WALKER. SBP 96-135. HR 70, DUAL PACED. DENIES PAIN. 3L NC WITH O2 SATS UPPER 90'S. HAS HAD 1 LOOSE STOOL, PRN BENTYL GIVEN X1. SKIN TEAR TO RIGHT FA WITH SKIN TEAR PROTOCOL DRESSING INTACT. PLAN TO DC BACK TO [place] SWINGBED TODAY. SON TO [place]. Follow up: DISCHARGE TODAY.
--- NOTE | 2017-04-22 15:18 | NUR ---
Received a call at [address] Bowden this morning stating patient could go tot the [facility] today. I called and spoke with Mikel, faxed referral information. Mikel called back at 1145 and stated that they could accept patient for admission today. Called and updated Dr Bowden. She called and gave Dr to Dr to Dr. Bello. Orders faxed.
== END 2017-04-22 13:45 | disposition swing bed (61) | DRG 291 ==
LOC: GMED 19:41 → GICU 20:28 → GPCU 20:28
PROVIDERS: Family Medicine; Internal Medicine; Internal Medicine Interventional Cardiology; ADMIT Internal Medicine
PROC: B246ZZZ Ultrasonography of Right and Left Heart (ICD-10-PCS; principal; 2017-04-18)
DX: I13.0 Hypertensive heart and chronic kidney disease with heart failure and stage 1 through stage 4 chronic kidney disease, or unspecified chronic kidney disease (principal); J96.21 Acute and chronic respiratory failure with hypoxia; N17.9 Acute kidney failure, unspecified; I50.43 Acute on chronic combined systolic (congestive) and diastolic (congestive) heart failure; Z68.42 Body mass index [BMI] 45.0-49.9, adult; I48.2 Chronic atrial fibrillation; E66.9 Obesity, unspecified; J44.9 Chronic obstructive pulmonary disease, unspecified; G47.33 Obstructive sleep apnea (adult) (pediatric); Z79.4 Long term (current) use of insulin; E11.22 Type 2 diabetes mellitus with diabetic chronic kidney disease; Z79.01 Long term (current) use of anticoagulants; N18.3 Chronic kidney disease, stage 3 (moderate); D63.1 Anemia in chronic kidney disease; E78.5 Hyperlipidemia, unspecified; I25.10 Atherosclerotic heart disease of native coronary artery without angina pectoris
CPT/HCPCS: C8929; G0237; G0424; J1940; J3480; J7030; J7050; Q9957